=== PATIENT | male | born 1950 ===

== ENCOUNTER 2025-03-19 06:25 | Day surgery (SDC) | payer BC ==
[~2025-03-19] VITALS: Ht 170.2 cm; Wt 92.3 kg
[~2025-03-19 06:25] MED LIST: ALBU90OI6; ASPI81EC PO; ATOR10; ATOR20; Balanced Salt Epinephrine Irrigation Solution 500 mL IR SCH; CLARITIN10 MG; DOXE10; DOXE10 PO; METF500; MULVITA PO; Moxifloxacin HCL 0.5 MG/0.1 ML 0.4MLSYR RIGHTEYE SCH; OMEP20ER; Ondansetron 4 MG SoluTab MM PRN; PHENYLEPHRINE\\TROPICAMIDE\\TETRACAINE OPHTHALMIC DILATING SOLN RIGHTEYE PRN; Povidone-Iodine 450 DROP/30 ML Solution ONE; Povidone-Iodine 450 DROP/30 ML Solution RIGHTEYE SCH; QVAR7.3 G1; ROSU10TA PO; SITA100T2; Tetracaine HCl/Pf 0.5% Opth Soln 4 ml ONE; Triamcinolone Inj Susp 40 MG / ML 1ML Vial INJ SCH; UBID10 PO; VITAMIN D3 PO
[2025-03-19] MEDS ORDERED: Triamcinolone Inj Susp 40 MG / ML 1ML Vial ONE (06:36)
[2025-03-19] MEDS ORDERED: METTREX2.5 PO (07:04)
[2025-03-19] MEDS ORDERED: HYDSUL200 PO (07:04)
[2025-03-19] MEDS ORDERED: FARXIGA5 MG PO (07:04)
--- NOTE | 2025-03-19 08:06 | NUR ---
03/19/25 0806 Allie Sarmiento 0800 BP 169/83, HR 68, O2 AT 98%, RESP 16
--- NOTE | 2025-03-19 08:20 | NUR ---
03/19/[address] at bedside
[2025-03-19 08:27] VITALS: BP 149/74
== END 2025-03-19 08:38 | disposition home or self-care (01) ==
LOC: ORSCSDS 06:25
PROVIDERS: Ophthalmology
PROC: 08RJ3JZ Replacement of Right Lens with Synthetic Substitute, Percutaneous Approach (ICD-10-PCS; principal; 2025-03-19 08:00)
DX: E11.36 Type 2 diabetes mellitus with diabetic cataract (principal); H25.813 Combined forms of age-related cataract, bilateral; G47.30 Sleep apnea, unspecified; K21.9 Gastro-esophageal reflux disease without esophagitis; Z79.4 Long term (current) use of insulin; Z79.84 Long term (current) use of oral hypoglycemic drugs; Z79.899 Other long term (current) drug therapy
CPT/HCPCS: A9270; J3301; V2632

== ENCOUNTER 2025-03-26 06:20 | Day surgery (SDC) | payer BC ==
[~2025-03-26] VITALS: Ht 175.3 cm; Wt 92.3 kg
[~2025-03-26 06:20] MED LIST changes: +FARXIGA5 MG PO; +HYDSUL200 PO; -METF500; +METF500 PO; +METTREX2.5 PO; +Moxifloxacin HCL 0.5 MG/0.1 ML 0.4MLSYR LEFTEYE SCH; -Moxifloxacin HCL 0.5 MG/0.1 ML 0.4MLSYR RIGHTEYE SCH; +PHENYLEPHRINE\\TROPICAMIDE\\TETRACAINE OPHTHALMIC DILATING SOLN LEFTEYE PRN; -PHENYLEPHRINE\\TROPICAMIDE\\TETRACAINE OPHTHALMIC DILATING SOLN RIGHTEYE PRN; +Povidone-Iodine 450 DROP/30 ML Solution LEFTEYE SCH; -Povidone-Iodine 450 DROP/30 ML Solution RIGHTEYE SCH
[2025-03-26] MEDS ORDERED: Triamcinolone Inj Susp 40 MG / ML 1ML Vial ONE (06:49)
--- NOTE | 2025-03-26 07:11 | NUR ---
03/26/25 0711 Lizy Denis 0705: INITIAL ANXIETY 0/10 PER PATIENT REPORT 0708: 10 MG PO VALIUM PER ORDERS. PULSE OXIMETER ON FINGER, CALL LIGHT IN HAND.
[2025-03-26] MEDS ORDERED: COQ-10100 MG (07:16)
[2025-03-26] MEDS ORDERED: Hydroxychloroq200 MG PO (07:17)
[2025-03-26] MEDS ORDERED: SITA100T2 PO (07:18)
[2025-03-26] MEDS ORDERED: FOLIC ACID0.4 MG (07:18)
[2025-03-26] MEDS ORDERED: Tetracaine HCl 0.5% Opth Soln 15 ml LEFTEYE ONE (08:02)
--- NOTE | 2025-03-26 08:09 | NUR ---
03/26/25 0809 Patrice Monzon N 133/73 96% 10L OF BLOW BY O2 69 16
[2025-03-26 08:27] VITALS: BP 148/74
== END 2025-03-26 08:43 | disposition home or self-care (01) ==
LOC: ORSCSDS 06:20
PROVIDERS: Ophthalmology
PROC: 08RK3JZ Replacement of Left Lens with Synthetic Substitute, Percutaneous Approach (ICD-10-PCS; principal; 2025-03-26 08:00)
DX: E11.36 Type 2 diabetes mellitus with diabetic cataract (principal); Z96.1 Presence of intraocular lens; D64.9 Anemia, unspecified; K57.30 Diverticulosis of large intestine without perforation or abscess without bleeding; K21.9 Gastro-esophageal reflux disease without esophagitis; G47.30 Sleep apnea, unspecified; M06.9 Rheumatoid arthritis, unspecified; Z79.82 Long term (current) use of aspirin; Z79.84 Long term (current) use of oral hypoglycemic drugs; Z79.4 Long term (current) use of insulin; Z79.899 Other long term (current) drug therapy
CPT/HCPCS: A9270; J2003; J3301; V2632